=== PATIENT | female | born 1995 | race Caucasian/White ===

== ENCOUNTER 2019-09-14 10:57 | Emergency (ER) | payer OTHER ==
[~2019-09-14] VITALS: Ht 170.2 cm; Wt 68.0 kg
[2019-09-14 12:39] LABS: HEMATOCRIT 42.7 % (37.0-47.0); HEMOGLOBIN 14.5 gm/dL (12.0-15.0); MCH 31.3 pg (26.0-34.0); MCHC 34.1 g/dL (28.0-37.0); MCV 91.7 fL (80.0-100.0); PLATELET COUNT 181 thou/uL (150-400); RBC 4.65 mil/uL (4.20-5.00); RDW 13.5 % (10.5-14.5); WBC 14.9 thou/uL (4.0-11.0)
[2019-09-14 12:44] LABS: CALCIUM 9.1 mg/dL (8.5-10.1); POTASSIUM 3.5 mmol/L (3.5-5.1)
[2019-09-14 12:50] LABS: ALBUMIN 3.9 g/dL (3.4-5.0); DIRECT BILIRUBIN 0.3 mg/dL (<0.1-0.2); TOTAL BILIRUBIN 2.8 mg/dL (0.2-1.0); TOTAL PROTEIN 8.2 g/dL (6.4-8.2)
[2019-09-14 13:22] LABS: URINE BILIRUBIN NEGATIVE (Negative); URINE BLOOD 3+ (Negative); URINE COLOR YELLOW; URINE GLUCOSE-RANDOM* NEGATIVE (Negative); URINE KETONES NEGATIVE (Negative); URINE PROTEIN (DIPSTICK) 2+ (Negative); URINE SPECIFIC GRAVITY 1.015 (1.005-1.035); URINE UROBILINOGEN 0.2 E.U./dl (0.2-1.0)
[2019-09-14 13:23] LABS: URINE CLARITY HAZY; URINE LEUKOCYTES-REFLEX 3+ (Negative); URINE NITRITE-REFLEX POSITIVE (Negative)
[2019-09-14 13:31] LABS: CASTS None Seen /LPF (None Seen); SQUAMOUS 0-3 Few /LPF (0-3); URINE RBC 0-2 Rare /HPF (0-2); URINE WBC-REFLEX >25 Many /HPF (0-5)
[2019-09-14 13:32] LABS: BACTERIA-REFLEX 1-9 Few /HPF (None Seen); CRYSTALS None Seen /LPF (None Seen); WBC CLUMPS Packed (None Seen)
[2019-09-14 13:57] LABS: ABSOLUTE NEUTROPHILS 12.1 thou/uL (1.4-8.2); PLATELET ESTIMATE NORMAL
[2019-09-14] MEDS ORDERED: KEFLEX500 M1 PO (14:18)
[2019-09-14 14:42] VITALS: BP 107/70
== END 2019-09-14 15:22 | disposition home or self-care (01) ==
LOC: ER 10:57
PROVIDERS: Emergency Medicine
DX: N12 Tubulo-interstitial nephritis, not specified as acute or chronic (principal)